=== PATIENT | female | born 1950 | race Caucasian/White ===

== ENCOUNTER → 2024-11-26 | Outpatient (CLI) | payer MEDICARE, SELFPAY ==
--- NOTE | 2024-11-26 10:54 | XR_ITS ---
Examination: Shoulder,right, 3 views Technique: Shoulder AP internal rotation, AP external rotation, Y view shoulder, 3 views Exam date and time :November 26, 2024 1106 hours INDICATIONS: Patient fell one month ago with injury to the shoulder, shoulder pain. FINDINGS: Moderate osteopenia No shoulder fracture or dislocation Moderate narrowing glenohumeral joint No AC joint separation IMPRESSION: No shoulder fracture or dislocation
== END | disposition home or self-care (01) ==
PROVIDERS: PCP Specialist; Referring Provider Orthopaedic Surgery; Visit Provider Orthopaedic Surgery
DX: S49.91XA Unspecified injury of right shoulder and upper arm, initial encounter (principal); W19.XXXA Unspecified fall, initial encounter
CPT/HCPCS: 73030

== ENCOUNTER → 2025-02-23 | Outpatient (CLI) | payer MEDICARE, SELFPAY ==
[2025-02-23 12:18] LABS: Alanine Aminotransferase 18 U/L (10-49); Albumin/Globulin Ratio 2.2 (1.2-2.2); Alkaline Phosphatase 80 U/L (46-116); Anion Gap 5 (7-16); Aspartate Amino Transferase 19 U/L (0-34); BUN/Creatinine Ratio 24 Ratio (12-20); Bilirubin,Total 0.5 mg/dL (0.3-1.2); Blood Urea Nitrogen 22 mg/dL (9-23); Calcium 9.1 mg/dL (8.3-10.6); Calcium (Corrected) 9.1 mg/dL (8.5-10.1); Carbon Dioxide 30.1 mMol/L (20.0-31.0); Chloride 109 mMol/L (98-107); Creatinine (Component) 0.9 mg/dL (0.6-1.3); Globulin 1.8 gm/dL (2.3-3.5); Glucose 86 mg/dL (74-106); Osmolality,Calculated 289 (275-295); Potassium 4.1 mMol/L (3.4-5.1); Sodium 144 mMol/L (136-145); Total Protein 5.8 gm/dL (5.7-8.2); eGFR > 60 See Note
== END | disposition home or self-care (01) ==
LOC: COPL 11:10
PROVIDERS: PCP Specialist; Referring Provider Orthopaedic Surgery Orthopaedic Trauma; Visit Provider Orthopaedic Surgery Orthopaedic Trauma
DX: Z01.818 Encounter for other preprocedural examination (principal); Z01.812 Encounter for preprocedural laboratory examination; Z01.810 Encounter for preprocedural cardiovascular examination; R79.1 Abnormal coagulation profile; M19.011 Primary osteoarthritis, right shoulder; M19.012 Primary osteoarthritis, left shoulder
CPT/HCPCS: 36415; 80053

== ENCOUNTER → 2025-03-22 | Outpatient (CLI) | payer MEDICARE, SELFPAY ==
[2025-03-22 18:11] LABS: Alanine Aminotransferase 10 U/L (10-49); Albumin, Serum 4.1 gm/dL (3.4-4.8); Albumin/Globulin Ratio 2.1 (1.2-2.2); Alkaline Phosphatase 76 U/L (46-116); Anion Gap 8 (7-16); Aspartate Amino Transferase 16 U/L (0-34); BUN/Creatinine Ratio 38 Ratio (12-20); Bilirubin,Total 0.7 mg/dL (0.3-1.2); Blood Urea Nitrogen 34 mg/dL (9-23); Calcium 9.6 mg/dL (8.3-10.6); Calcium (Corrected) 9.6 mg/dL (8.5-10.1); Carbon Dioxide 30.3 mMol/L (20.0-31.0); Chloride 107 mMol/L (98-107); Creatinine (Component) 0.9 mg/dL (0.6-1.3); Glucose 93 mg/dL (74-106); Osmolality,Calculated 296 (275-295); Potassium 3.7 mMol/L (3.4-5.1); Sodium 145 mMol/L (136-145); Total Protein 6.1 gm/dL (5.7-8.2); eGFR > 60 See Note
== END | disposition home or self-care (01) ==
LOC: COPL 16:17
PROVIDERS: PCP Specialist; Referring Provider Orthopaedic Surgery; Visit Provider Orthopaedic Surgery
DX: Z01.89 Encounter for other specified special examinations (principal); Z79.1 Long term (current) use of non-steroidal anti-inflammatories (NSAID)
CPT/HCPCS: 36415; 80053

== ENCOUNTER → 2025-03-23 | Outpatient (CLI) | payer MEDICARE, SELFPAY ==
--- NOTE | 2025-03-23 | XR_ITS ---
Examination: PA lateral chest 2 views TECHNIQUE: Upright AP lateral chest 2 views Exam date and time: March 23, 2025 1232 hours INDICATIONS: Coughing congestion this week diagnosis acute bronchitis FINDINGS: Normal heart size Moderate hyperexpansion Accentuation basilar bronchovascular markings. No lobar pneumonia Possible retrocardiac gastric hernia IMPRESSION: COPD Mild basilar bronchitis pattern
== END | disposition home or self-care (01) ==
PROVIDERS: PCP Specialist; Referring Provider Specialist; Visit Provider Specialist
DX: J44.9 Chronic obstructive pulmonary disease, unspecified (principal)
CPT/HCPCS: 71046

== ENCOUNTER 2025-03-27 07:27 | Emergency (ER) | payer MEDICARE, SELFPAY ==
[2025-03-27 07:36] VITALS: BP 201/95; PULSE 67; RESP 16; TEMP 36.9; O2SAT 95; BMI 24.1
--- NOTE | 2025-03-27 07:42 | EKG_ITS ---
[facility] Test Date: 2025-03-27 Pat Name: DYLON ORANTES Department: Room: - Gender: Female Cardiology Consultant: : 1950 Requested By: Esha Lyons Order Number: [id number] Reading MD: Esha Lyons Measurements Intervals [place] Rate: 64 P: 57 AR: 135 QRS: 74 QRSD: 110 T: 44 QT: 413 QTc: 426 Interpretive Statements SINUS RHYTHM Compared to ECG 04/24/2022 10:18:24 No significant changes /store/S0/[id number]/[id number].pdf
--- NOTE | 2025-03-27 07:42 | XR_ITS ---
Examination: PA chest single view Technique: Upright PA chest single view Exam date and time: March 27, 2025, 0824 hrs. Comparison March 23, 2025 Indications: Coughing 2 weeks Findings: The film is rotated severely LPO No pneumonia. Small retrocardiac gastric hernia. Reversal shoulder arthroplasty Impression: No pneumonia identified
--- NOTE | 2025-03-27 07:42 | EDRME_ITS ---
Rapid Medical Screening Exam E Arrival date/time: 03/27/25 07:27 This is a 74-year-old female that comes in with complaints of shortness of breath and dizziness. Patient states that she had a shoulder replacement on the left side on March 15 in [place]. Patient was recently treated for bronchitis. She states she had an x-ray and that is what it stated she had. Patient states that she just finished her Z-Jacob. Patient reports that she is not feeling better. History of high blood pressure. I have greeted and performed a focused initial assessment of this patient. Initial appropriate labs ordered at this time. A comprehensive ED assessment and evaluation of the patient and analysis of all test and completion of medical decision making process will be conducted by additional ED provider. Chief Complaint: Shortness of Breath/Dyspnea Time Seen by Provider: 03/27/25 07:38 Vital signs: Vital Signs Temperature 98.5 F 03/27/25 07:36 Pulse Rate 67 03/27/25 07:36 Respiratory Rate 16 03/27/25 07:36 Blood Pressure 201/95 H 03/27/25 07:36 Pulse Oximetry (%) 95 03/27/25 07:36 Oxygen Delivery Method Room Air 03/27/25 07:36
[2025-03-27 08:38] LABS: Basophils # (Auto) 0.1 Thou/mm3 (0.0-0.2); Basophils % (Auto) 1 % (0-2.5); Eosinophils # (Auto) 0.2 Thou/mm3 (0.0-0.5); Eosinophils % (Auto) 2 % (0-10); Hemoglobin 12.7 g/dL (12.0-16.0); Immature Granulocytes % (Auto) 0 % (0-0); Immature Granulocytes Auto 0.03 Thou/mm3 (0.00-0.00); Lymphocytes # (Auto) 1.5 Thou/mm3 (1.0-4.8); Lymphocytes % (Auto) 14 % (10-50); Mean Corpuscular HGB Conc 33.4 g/dl (31.0-37.0); Mean Corpuscular Hemoglobin 29.1 pg (25.0-35.0); Mean Corpuscular Volume 87 fL (80-100); Monocytes # (Auto) 0.6 Thou/mm3 (0.0-0.8); Monocytes % (Auto) 5 % (0-12); Neutrophils # (Auto) 8.6 Thou/mm3 (1.8-7.7); Neutrophils % (Auto) 78 % (37-80); Nucleated Red Blood Cell % 0 /100 WBC (0); Platelet Count 323 Thou/mm3 (140-440); RDW Standard Deviation 40.3 fL (36.4-46.3); Red Blood Count 4.37 Miln/mm3 (4.00-5.20)
[2025-03-27 08:50] LABS: Prothrombin Time 10.9 Seconds (9.0-12.2)
[2025-03-27 08:54] LABS: B-Type Natriuretic Peptide 64 pg/mL (0-100)
[2025-03-27 09:08] LABS: Alanine Aminotransferase 9 U/L (10-49); Albumin, Serum 4.2 gm/dL (3.4-4.8); Alkaline Phosphatase 82 U/L (46-116); Anion Gap 9 (7-16); Aspartate Amino Transferase 12 U/L (0-34); BUN/Creatinine Ratio 30 Ratio (12-20); Bilirubin,Total 0.4 mg/dL (0.3-1.2); Blood Urea Nitrogen 27 mg/dL (9-23); Carbon Dioxide 28.4 mMol/L (20.0-31.0); Chloride 107 mMol/L (98-107); Creatinine (Component) 0.9 mg/dL (0.6-1.3); Estimated Creatinine Clearance 44.3 mL/min (>60); Globulin 2.1 gm/dL (2.3-3.5); Glucose 102 mg/dL (74-106); Osmolality,Calculated 291 (275-295); Potassium 3.9 mMol/L (3.4-5.1); Sodium 144 mMol/L (136-145); Total Protein 6.3 gm/dL (5.7-8.2); Troponin I < 0.002 ng/mL (0.0-0.045); eGFR > 60 See Note
[2025-03-27 09:25] LABS: D-Dimer 636 ng/mL (<600)
--- NOTE | 2025-03-27 11:41 | EDRME_ITS ---
Rapid Medical Screening Exam RME Arrival date/time: 03/27/25 07:27 03/27/25 07:27 This is a 74-year-old female that comes in with complaints of shortness of breath and dizziness. Patient states that she had a shoulder replacement on the left side on March 15 in [place]. Patient was recently treated for bronchitis. She states she had an x-ray and that is what it stated she had. Patient states that she just finished her Z-Jacob. Patient reports that she is not feeling better. History of high blood pressure. I have greeted and performed a focused initial assessment of this patient. Initial appropriate labs ordered at this time. A comprehensive ED assessment and evaluation of the patient and analysis of all test and completion of medical decision making process will be conducted by additional ED provider. Chief Complaint: Shortness of Breath/Dyspnea Time Seen by Provider: 03/27/25 07:38 Vital signs: Vital Signs Temperature 98.5 F 03/27/25 07:36 Pulse Rate 67 03/27/25 07:36 Respiratory Rate 16 03/27/25 07:36 Blood Pressure 201/95 H 03/27/25 07:36 Pulse Oximetry (%) 95 03/27/25 07:36 Oxygen Delivery Method Room Air 03/27/25 07:36 RME Narrative: 03/27/25 07:27 This is a 74-year-old female that comes in with complaints of shortness of breath and dizziness. Patient states that she had a shoulder replacement on the left side on March 15 in [place]. Patient was recently treated for bronchitis. She states she had an x-ray and that is what it stated she had. Patient states that she just finished her Z-Jacob. Patient reports that she is not feeling better. History of high blood pressure. I have greeted and performed a focused initial assessment of this patient. Initial appropriate labs ordered at this time. A comprehensive ED assessment and evaluation of the patient and analysis of all test and completion of medical decision making process will be conducted by additional ED provider.
--- NOTE | 2025-03-27 11:44 | PD.EDSOB ---
ED SOB =RME/HPI General Chief Complaint: Shortness of Breath/Dyspnea Stated Complaint: SHORTNESS OF BREATH FOR 1 WEEK Time Seen by Provider: 03/27/25 07:38 Arrival date/time: 03/27/25 07:27 Limitations: no limitations RME / HPI RME / HPI Narrative: 03/27/25 07:27 This is a 74-year-old female that comes in with complaints of shortness of breath and dizziness. Patient states that she had a shoulder replacement on the left side on March 15 in [place]. Patient was recently treated for bronchitis. She states she had an x-ray and that is what it stated she had. Patient states that she just finished her Z-Jacob. Patient reports that she is not feeling better. History of high blood pressure. I have greeted and performed a focused initial assessment of this patient. Initial appropriate labs ordered at this time. A comprehensive ED assessment and evaluation of the patient and analysis of all test and completion of medical decision making process will be conducted by additional ED provider. DR. CABRERA MAIN ED EVALUATION: 74 year old female post shoulder surgery 2 weeks ago presents to the Emergency Department with complaint of new onset of shortness of breath. Onset of symptoms 1 week. No cough, fevers, chills, or other respiratory symptoms. No history of cardiac disease. Other PMHx includes hypertension. Related Data Home Medications ?Medication ?Instructions ?Recorded ?Confirmed amlodipine 5 mg tablet (Norvasc) 5 mg PO QDAY #0 tabs 08/29/17 06/24/24 benazepril 40 mg tablet 40 mg PO BID 06/23/24 06/24/24 diclofenac potassium 50 mg tablet 50 mg PO BID 06/23/24 06/24/24 Previous Rx's ?Medication ?Instructions ?Recorded buspirone 7.5 mg tablet 7.5 mg PO BID #20 tabs 03/27/25 fluticasone 250 mcg-salmeterol 50 1 inh inhalation BID #60 ea 03/27/25 mcg/dose blistr powdr for inhalation (Advair Diskus) fluticasone propionate 115 2 puff inhalation BID #12 grams 03/27/25 mcg-salmeterol 21 mcg/actuation HFA inhaler (Advair HFA) Allergies Allergy/AdvReac Type Severity Reaction Status Date / Time codeine Allergy Severe SEVERE Verified 03/27/25 07:31 NAUSEA Sulfa (Sulfonamide Allergy Severe SEVERE Verified 03/27/25 07:31 Antibiotics) NAUSEA Review of Systems Review of Systems Systems Reviewed: All systems reviewed, normal except as documented Narrative Review of Systems: GEN: No fever, no chills, no weight loss EYES: No discharge, no visual changes, no pain HEENT: No ear pain, no congestion, no sore throat PULM: + shortness of breath, no cough, no congestion CV: No chest pain, no dyspnea on exertion, no palpitations GI: No nausea, no vomiting, no diarrhea, no pain, no constipation : No frequency, no urgency and no dysuria MUSC/SKEL: No joint pain, no back pain SKIN: No rash PSYCH: No hallucinations, no depression HEME/LYMPH: No easy bleeding or bruising tendencies NEURO: No weakness, no headache Past Medical History Past Medical History CARDIAC: Positive Cardiac Disorders and Hypertension MUSCULOSKELETAL: Positive Musculoskeletal Disorders, Arthritis (osteoarthitis throughout body) and Carpal Tunnel Syndrome (bilateral) Surgical History SURGICAL: Positive Abdominal Surgery, Joint Replacement, Hysterectomy (complete) and Tubal Ligation Social History SMOKING STATUS: Never smoker SUBSTANCE USE: does not use ALCOHOL: Never ED Exam General Limitations: Present no limitations General appearance: Present alert and in no apparent distress Head Head exam: Present atraumatic, normocephalic and normal inspection Eye Eye exam: Present normal appearance, PERRL and EOMI ENT ENT exam: Present normal exam, normal oropharynx and mucous membranes moist Neck Neck exam: Present normal inspection, full ROM and trachea midline Chest Chest inspection: Present normal inspection and symmetric chest wall rise Respiratory Respiratory exam: Present normal lung sounds bilaterally Cardiovascular Cardiovascular exam: Present regular rate, normal rhythm and normal heart sounds Abdominal Exam Abdominal exam: Present soft and normal bowel sounds Extremities Exam Extremities exam: Present normal inspection and full ROM Back Exam Back exam: Present normal inspection and full ROM Neurological Exam Neurological exam: Present alert, oriented X3 and CN II-XII intact Psychiatric Psychiatric exam: Present normal affect and normal mood Skin Skin exam: Present warm, dry, intact and normal color Course Quality Measures none Orders Category Date Time Status CT Screening NOW Care 03/27/25 11:52 Completed EKG (ED ONLY) *Do not use* NOW Care 03/27/25 07:42 Completed Discharge Routine Discharge 03/27/25 14:[address] angio chest Stat Exams 03/27/25 11:51 Completed EKG (ED Only) Stat Exams 03/27/25 07:42 Draft XR chest 2V Stat Exams 03/27/25 07:42 Completed BNP [B-Type Natriuretic Peptide] Stat Lab 03/27/25 08:10 Completed BNP [B-Type Natriuretic Peptide] Stat Lab 03/27/25 12:42 Completed CBC Stat Lab 03/27/25 08:10 Completed Comprehensive Metabolic Panel Stat Lab 03/27/25 08:10 Completed D-Dimer Stat Lab 03/27/25 08:10 Completed PT [Prothrombin Time with INR] Stat Lab 03/27/25 08:10 Completed Troponin I Stat Lab 03/27/25 08:10 Completed Troponin I Stat Lab 03/27/25 12:42 Completed Vital Signs Vital signs: Vital Signs Temperature 98.5 F 03/27/25 07:36 Pulse Rate 67 03/27/25 07:36 Respiratory Rate 16 03/27/25 07:36 Blood Pressure 201/95 H 03/27/25 07:36 Pulse Oximetry (%) 95 03/27/25 07:36 Oxygen Delivery Method Room Air 03/27/25 07:36 Procedures -ED EKG Interpretation #1: Date of EK03/27/25 Time of EK:44 Interpretation: Interpreted by me Additional EKG comment: sinus rhythm, rate 64, no ischemia, normal intervals Shortness of Breath / Dyspnea [facility] Narrative [facility] Narrative:: Laura Dickey am scribing for and in the presence of Dr. Cabrera. Patient data External records reviewed:: [facility] previous records (Reviewed last ED visit dated 04/24/22 discharged with the following: Pneumonia.) Clinical information provided by:: patient Social determinants that could affect healthcare access:: none Patient has the following chronic illnesses:: Hypertension How is presenting disease/condition affected by chronic disease/condition?: uneffected by Evaluation data The following diagnostics were reviewed and interpreted by me:: lab results, radiology exam(s) and EKG tracing(s) Lab and/or radiology exams considered but not ordered:: none Interpretation Summary: Procedure(s): XR chest 2V Accession Number(s): [id number] cc: John Shaw MD; Alejo Garcia MD; Esha Lyons NP~ Examination: PA chest single view Technique: Upright PA chest single view Exam date and time: March 27, 2025, 0824 hrs. Comparison March 23, 2025 Indications: Coughing 2 weeks Findings: The film is rotated severely LPO No pneumonia. Small retrocardiac gastric hernia. Reversal shoulder arthroplasty Impression: No pneumonia identified Dictated By: Alejo Garcia MD Procedure(s): CT angio chest Accession Number(s): [id number] cc: Laurence Cabrera MD; John Shaw MD; Alejo Garcia MD~ Examination: CTA chest with intravenous contrast 2-D reconstructions 3-D reconstructions, vascular Date and time of exam: March 27, 2025 1300 hrs. Indications: Chest pain shortness of breath beginning one week ago CTDI: vol (mGy) 13.4 DLP: (mGycm) : 265 Technique: Multiple axial sections of the thorax have been obtained. 3 mm slice thickness, from below the hemidiaphragms to above the apices of the lungs. Mediastinal and lung density settings have been obtained. 2-D sagittal and coronal reconstructions. 3-D angiographic renderings, 3-D volume renderings, 3D post processing, vascular maximum intensity projections obtained. Contrast administered is 100 cc Isovue-370. Intravenous Low dose protocols were performed. One or more of the following dose reduction techniques were used; automated exposure control, adjustment of the mA and/or KV according to patient size, use of iterative reconstruction technique. Findings: No thoracic aortic aneurysmal dilatation or dissection No pulmonary artery filling defects No paratracheal tracheobronchial or bronchopulmonary adenopathy. No pneumonia or pulmonary edema or pleural disease Fatty infiltration throughout the liver, liver is mildly irregular in contour No definite gallstones Posterior 3.7 cm right renal cyst No pancreatic mass Impression: Negative for pulmonary artery emboli No thoracic aortic aneurysm dilatation or dissection No pneumonia, pulmonary edema or pleural disease Dictated By: Alejo Garcia MD Medications / Prescriptions Medications or Prescriptions considered but not ordered:: none Medication administrations:: see above if any Consultations Consultation(s) initiated? (list below): No Diagnosis Shortness of Breath Differential Diagnosis: acute exacerbation of chronic obstructive airways disease, congestive heart failure, community acquired pneumonia, asthma with exacerbation and pulmonary embolism Most likely diagnosis given after review of the tests above:: Anxiety and RAD (reactive airway disease). Admission Indicated Admission indicated?: not indicated Admission Request Was there a request for admission?: No Disposition Plan Disposition Plan: Discharge Discharge Attestation Discharge Attestation: The patient and all family members were given an opportunity to ask questions and understood the discharge instructions. Discharge instructions specifically effects, indications for sooner follow up or return to the emergency department, and the expected course of current diagnosis. Patient condition: Stable Discharge Plan Plan Patient Disposition: HOME (Self Care) Patient condition on transfer: Stable Prescriptions/Referrals Prescriptions/Med Rec: New buspirone 7.5 mg tablet 7.5 mg PO BID Qty: 20 0RF fluticasone propion-salmeterol [Advair HFA] 115-21 mcg/actuation HFA aerosol inhaler 2 puff inhalation BID Qty: 12 0RF fluticasone propion-salmeterol [Advair Diskus] 250-50 mcg/dose blister with device 1 inh inhalation BID Qty: 60 0RF No Action amlodipine [Norvasc] 5 MG tablet 5 mg PO QDAY Qty: 0 diclofenac potassium 50 mg tablet 50 mg PO BID benazepril 40 mg tablet 40 mg PO BID Patient Comments: TAKE 1 TABLET BY MOUTH TWICE A DAY Referrals: John Shaw MD [Primary Care Provider] - In 1 week Problem List Clinical Impression: RAD (reactive airway disease), Anxiety Patient/Caregiver Discharge Instructions Discharge Activity: activity as tolerated Education Materials: Asthma and COPD, Asthma Medicine, Asthma Trigger Checklist, ED Anxiety Reaction, Asthma Print Language: Norwegian Stand Alone Forms: [facility] Award Info., Patient Portal Info Letter
[2025-03-27 11:45] VITALS: BP 195/94; PULSE 65; RESP 18; TEMP 36.9; O2SAT 97
--- NOTE | 2025-03-27 11:51 | XR_ITS ---
Examination: CTA chest with intravenous contrast 2-D reconstructions 3-D reconstructions, vascular Date and time of exam: March 27, 2025 1300 hrs. Indications: Chest pain shortness of breath beginning one week ago CTDI: vol (mGy) 13.4 DLP: (mGycm) : 265 Technique: Multiple axial sections of the thorax have been obtained. 3 mm slice thickness, from below the hemidiaphragms to above the apices of the lungs. Mediastinal and lung density settings have been obtained. 2-D sagittal and coronal reconstructions. 3-D angiographic renderings, 3-D volume renderings, 3D post processing, vascular maximum intensity projections obtained. Contrast administered is 100 cc Isovue-370. Intravenous Low dose protocols were performed. One or more of the following dose reduction techniques were used; automated exposure control, adjustment of the mA and/or KV according to patient size, use of iterative reconstruction technique. Findings: No thoracic aortic aneurysmal dilatation or dissection No pulmonary artery filling defects No paratracheal tracheobronchial or bronchopulmonary adenopathy. No pneumonia or pulmonary edema or pleural disease Fatty infiltration throughout the liver, liver is mildly irregular in contour No definite gallstones Posterior 3.7 cm right renal cyst No pancreatic mass Impression: Negative for pulmonary artery emboli No thoracic aortic aneurysm dilatation or dissection No pneumonia, pulmonary edema or pleural disease
[2025-03-27 13:32] LABS: Troponin I < 0.002 ng/mL (0.0-0.045)
[2025-03-27 13:33] LABS: B-Type Natriuretic Peptide 66 pg/mL (0-100)
[2025-03-27 14:55] VITALS: BP 153/75; PULSE 67; RESP 17; TEMP 36.8; O2SAT 97
== END 2025-03-27 15:10 | disposition home or self-care (01) ==
PROVIDERS: Nurse Practitioner Family; Emergency Provider Emergency Medicine; PCP Specialist
DX: J45.909 Unspecified asthma, uncomplicated (principal); Z96.612 Presence of left artificial shoulder joint; R42 Dizziness and giddiness; F41.9 Anxiety disorder, unspecified
CPT/HCPCS: 36415; 71046; 71275; 80053; 83880; 84484; 85025; 85379; 85610; 93005; 99285; A4649; Q9967

== ENCOUNTER → 2025-07-07 | Outpatient (CLI) | payer MEDICARE, SELFPAY ==
[2025-07-07 16:58] LABS: Basophils # (Auto) 0.1 Thou/mm3 (0.0-0.2); Basophils % (Auto) 1 % (0-2.5); Eosinophils # (Auto) 0.1 Thou/mm3 (0.0-0.5); Eosinophils % (Auto) 2 % (0-10); Hematocrit 41.1 % (36.0-46.0); Hemoglobin 13.2 g/dL (12.0-16.0); Immature Granulocytes Auto 0.01 Thou/mm3 (0.00-0.00); Lymphocytes # (Auto) 1.9 Thou/mm3 (1.0-4.8); Lymphocytes % (Auto) 29 % (10-50); Mean Corpuscular HGB Conc 32.1 g/dl (31.0-37.0); Mean Corpuscular Hemoglobin 28.8 pg (25.0-35.0); Mean Corpuscular Volume 90 fL (80-100); Monocytes # (Auto) 0.6 Thou/mm3 (0.0-0.8); Monocytes % (Auto) 9 % (0-12); Neutrophils # (Auto) 4.0 Thou/mm3 (1.8-7.7); Neutrophils % (Auto) 60 % (37-80); Nucleated Red Blood Cell # 0.00 Thou/mm3 (0.00-0.00); Nucleated Red Blood Cell % 0 /100 WBC (0); Platelet Count 255 Thou/mm3 (140-440); RDW Standard Deviation 40.4 fL (36.4-46.3); Red Blood Count 4.58 Miln/mm3 (4.00-5.20); White Blood Count 6.6 Thou/mm3 (3.6-11.0)
[2025-07-07 17:05] LABS: B-Type Natriuretic Peptide 53 pg/mL (0-100)
[2025-07-07 17:14] LABS: Alanine Aminotransferase 14 U/L (10-49); Albumin, Serum 4.4 gm/dL (3.4-4.8); Albumin/Globulin Ratio 2.2 (1.2-2.2); Alkaline Phosphatase 86 U/L (46-116); Anion Gap 10 (7-16); Aspartate Amino Transferase 24 U/L (0-34); BUN/Creatinine Ratio 20 Ratio (12-20); Bilirubin,Total 0.4 mg/dL (0.3-1.2); Blood Urea Nitrogen 18 mg/dL (9-23); Calcium 10.1 mg/dL (8.3-10.6); Calcium (Corrected) 10.1 mg/dL (8.5-10.1); Carbon Dioxide 27.3 mMol/L (20.0-31.0); Cardiac Risk Estimate 2.6 RATIO (3.7-5.6); Chloride 106 mMol/L (98-107); Cholesterol 209 mg/dL (132-200); Creatinine (Component) 0.9 mg/dL (0.6-1.3); Globulin 2.0 gm/dL (2.3-3.5); Glucose 88 mg/dL (74-106); HDL Cholesterol 80 mg/dL (40-60); LDL Cholesterol,Calculated 100 mg/dL (0-130); Osmolality,Calculated 285 (275-295); Potassium 4.2 mMol/L (3.4-5.1); Sodium 143 mMol/L (136-145); Thyroid Stimulating Hormone 2.45 uIU/mL (0.55-4.78); Total Protein 6.4 gm/dL (5.7-8.2); Triglycerides 143 mg/dL (30-150); Troponin I < 0.002 ng/mL (0.0-0.045); eGFR > 60 See Note
== END | disposition home or self-care (01) ==
LOC: COPL 15:42
PROVIDERS: PCP Specialist; Referring Provider Specialist; Visit Provider Specialist
DX: I20.81 Angina pectoris with coronary microvascular dysfunction (principal); I10 Essential (primary) hypertension
CPT/HCPCS: 36415; 80053; 80061; 83880; 84443; 84484; 85025

== ENCOUNTER → 2025-09-14 | Outpatient (CLI) | payer MEDICARE, SELFPAY ==
--- NOTE | 2025-09-14 10:33 | XR_ITS ---
EXAMINATION: Ultrasound extremity soft tissue right hand TECHNIQUE: Grayscale sonographic images soft tissue right hand Date and time: September 14 2025, 1039 hours INDICATIONS: Right hand lump with pain noticed beginning 2 weeks ago. FINDINGS: Soft tissue mass with internal echoes at the area of concern right hand 4.4 x 0.6 x 2.6 cm IMPRESSION: Findings most consistent with abscess in the right hand at the area of concern, suggest MRI hand without contrast follow-up
[2025-09-14 11:33] LABS: Basophils # (Auto) 0.1 Thou/mm3 (0.0-0.2); Basophils % (Auto) 1 % (0-2.5); Eosinophils # (Auto) 0.1 Thou/mm3 (0.0-0.5); Eosinophils % (Auto) 2 % (0-10); Hematocrit 39.7 % (36.0-46.0); Hemoglobin 12.9 g/dL (12.0-16.0); Immature Granulocytes Auto 0.01 Thou/mm3 (0.00-0.00); Lymphocytes # (Auto) 1.7 Thou/mm3 (1.0-4.8); Lymphocytes % (Auto) 24 % (10-50); Mean Corpuscular HGB Conc 32.5 g/dl (31.0-37.0); Mean Corpuscular Hemoglobin 28.9 pg (25.0-35.0); Mean Corpuscular Volume 89 fL (80-100); Monocytes # (Auto) 0.5 Thou/mm3 (0.0-0.8); Monocytes % (Auto) 7 % (0-12); Neutrophils # (Auto) 5.0 Thou/mm3 (1.8-7.7); Neutrophils % (Auto) 67 % (37-80); Nucleated Red Blood Cell # 0.00 Thou/mm3 (0.00-0.00); Nucleated Red Blood Cell % 0 /100 WBC (0); Platelet Count 257 Thou/mm3 (140-440); RDW Standard Deviation 41.9 fL (36.4-46.3); Red Blood Count 4.47 Miln/mm3 (4.00-5.20); White Blood Count 7.4 Thou/mm3 (3.6-11.0)
[2025-09-14 11:41] LABS: INR 1.0 (0.9-1.3); Partial Thromboplastin Time 27.2 Seconds (22.0-36.0); Prothrombin Time 10.3 Seconds (9.0-12.2)
[2025-09-14 11:53] LABS: Alanine Aminotransferase 13 U/L (10-49); Albumin, Serum 4.4 gm/dL (3.4-4.8); Albumin/Globulin Ratio 2.9 (1.2-2.2); Alkaline Phosphatase 93 U/L (46-116); Anion Gap 9 (7-16); Aspartate Amino Transferase 19 U/L (0-34); BUN/Creatinine Ratio 27 Ratio (12-20); Bilirubin,Total 0.4 mg/dL (0.3-1.2); Blood Urea Nitrogen 24 mg/dL (9-23); Calcium 9.4 mg/dL (8.3-10.6); Calcium (Corrected) 9.4 mg/dL (8.5-10.1); Carbon Dioxide 28.4 mMol/L (20.0-31.0); Chloride 106 mMol/L (98-107); Creatinine (Component) 0.9 mg/dL (0.6-1.3); Globulin 1.5 gm/dL (2.3-3.5); Glucose 94 mg/dL (74-106); Osmolality,Calculated 288 (275-295); Potassium 4.2 mMol/L (3.4-5.1); Sodium 143 mMol/L (136-145); Thyroid Stimulating Hormone 1.54 uIU/mL (0.55-4.78); Total Protein 5.9 gm/dL (5.7-8.2); eGFR > 60 See Note
== END | disposition home or self-care (01) ==
LOC: CDIM 10:26 → COPL 10:58
PROVIDERS: PCP Specialist; Referring Provider Specialist; Visit Provider Radiology Diagnostic Radiology
DX: M79.81 Nontraumatic hematoma of soft tissue (principal); I10 Essential (primary) hypertension
CPT/HCPCS: 36415; 76882; 80053; 84443; 85025; 85610; 85730

== ENCOUNTER → 2025-09-15 | Outpatient (CLI) | payer MEDICARE, SELFPAY ==
--- NOTE | 2025-09-15 11:24 | XR_ITS ---
Examination: MRI right hand without intravenous contrast. Date and time of exam: September 15, 2025, 1241 hours INDICATIONS: Pain and swelling dorsal surface of the right hand 2 weeks Technique: Multiple axial and sagittal images of the hand obtained. Siemens high-resolution 1.5 Janel short bore scanners utilized. Sagittal sections, T1-weighted, TR 500, TE 14, are performed. Axial sections proton-density and T2-weighted have been obtained. Inversion recovery axial images, TR 9, 260, TE 111, TI 2500. Diffusion weighted images, axial sections, TR 4800, TE 128, B value 1000 Axial sections, ADC map, TR 4800, TE 128 Findings: Fluid is present surrounding all of the extensor tendons, no abscess is confirmed on this study No occult fracture No marrow marrow edema bone contusion or occult fracture Flexor tendons are intact with normal median nerve No ganglion cyst Intact triangular fibrocartilage IMPRESSION: Severe tendinitis of the extensor tendons
== END | disposition home or self-care (01) ==
LOC: SMRI 10:43
PROVIDERS: PCP Specialist; Referring Provider Specialist; Visit Provider Specialist
DX: M67.843 Other specified disorders of tendon, right hand (principal)
CPT/HCPCS: 73218